=== PATIENT | male | born 1945 | race Caucasian/White ===

== ENCOUNTER 2023-02-18 11:40 | Inpatient (IN) ==
[2023-02-18] MEDS ORDERED: Ondansetron 4 mg VIAL 2 MG/ML 2 ml VIAL IV ONE (12:04)
[2023-02-18] MEDS ORDERED: Albuterol/Ipratropium NEB.SOL (2.5/0.5 MG) 3 ML NEB.SOLN INH ONE (12:05)
[2023-02-18 12:36] LABS: ABS Lymphocytes 0.6 10^3/uL (1.0-4.8); ABS Monocytes 1.3 10^3/uL (0.0-1.1); ABS Neutrophils 10.8 10^3/uL (1.5-7.6); ABS Nucleated RBC 0.01 10^3/ul; Hematocrit 40.1 % (38-53); Hemoglobin 13.1 g/dL (13.2-16.3); Lymphocyte % 4.5 %; Mean Corpuscular Hemoglobin 30.5 pg (27-33); Mean Corpuscular Hgb Conc 32.6 g/dL (31-36); Mean Corpuscular Volume 93.6 fL (80-97); Platelet Count 259 10^3/uL (150-450); Red Blood Count 4.28 10^6/uL (4.06-5.63); Red Cell Distribution Width 14.4 % (12-17); White Blood Count 12.7 10^3/uL (3.6-10.2)
[2023-02-18 12:47] LABS: Activated Partial Thrombo Time 26.4 seconds (26.0-38.0); INR 1.44 (0.83-1.13)
[2023-02-18 12:54] LABS: Albumin/Globulin Ratio 1.2 (1-3); C Reactive Protein 108.24 mg/L (<8.01); Globulin 3.4 g/dL (2-4); Potassium 4.7 mmol/L (3.5-5.0); Total Bilirubin 0.9 mg/dL (0.2-1.0); Total Protein 7.4 g/dL (6.4-8.9); eGFR CKD-EPI 33.3 (>60)
[2023-02-18] MEDS ORDERED: Dexamethasone IV 4 MG/ML VIAL 1 ml VIAL IV SLOW PU ONE (13:29)
[2023-02-18 14:07] LABS: High Sensitivity Troponin 1 Hr 99 pg/mL (<20)
[2023-02-18] MEDS ORDERED: Lactated Ringers 1000 ml BAG 1,000 ML IV ONE (14:51)
[2023-02-18 15:00] LABS: HDL Cholesterol 31.6 mg/dL; Magnesium 1.7 mg/dL (1.9-2.7)
[2023-02-18] MEDS ORDERED: Magnesium Sulfate 2 gm BAG 2 GM/50 ML BAG IVPB ONE (15:15)
[2023-02-18] MEDS ORDERED: Remdesivir 100 mg Vial 200 MG in NS 0.9% 250 ml 210 ML IV ONE (16:50)
[2023-02-18] MEDS ORDERED: Dextrose 50% Syringe 50 ml 25 GM/50 ML SYRINGE IV PUSH PRN (16:51)
[2023-02-18] MEDS ORDERED: cefTRIAXone 1 gm/50 mL D5W 1 GM/50 ML BAG IV SCH (17:00)
[2023-02-18] MEDS ORDERED: Olodaterol Inhaler MDI INH PRN (17:09)
[2023-02-18] MEDS ORDERED: cefTRIAXone 1 GM Q24H (ADVAN) IVPB SCH (18:30)
[2023-02-18] MEDS ORDERED: Ondansetron 4 mg VIAL 2 MG/ML 2 ml VIAL IV PRN (19:09)
[2023-02-19 00:27] LABS: INR 1.52 (0.83-1.13)
[2023-02-19] MEDS: Insulin GLARGINE 100 un/ml 10 ml VIAL SUBCUT SCH ×3 (00:36→22:33)
[2023-02-19 01:23] LABS: Urine Appearance Clear; Urine Bilirubin Negative (Negative); Urine Blood 2+ (Negative); Urine Color Straw; Urine Glucose 3+(>=500 mg/dL) (Negative); Urine Ketones Negative (Negative); Urine Nitrite Negative (Negative); Urine Protein 1+(30 mg/dL) (Negative); Urine Specific Gravity 1.018 (1.002-1.030); Urine Urobilinogen Negative (Negative)
[2023-02-19 01:46] LABS: Urine Bacteria 1+ (Absent); Urine Red Blood Cell 1+(3-5/hpf) (Absent); Urine White Blood Cell 1+(6-10/hpf) (Absent)
[2023-02-19 03:22] LABS: ABS Lymphocytes 0.4 10^3/uL (1.0-4.8); ABS Monocytes 0.3 10^3/uL (0.0-1.1); ABS Nucleated RBC 0.01 10^3/ul; Hematocrit 34.6 % (38-53); Hemoglobin 11.3 g/dL (13.2-16.3); Lymphocyte % 7.8 %; Mean Corpuscular Hemoglobin 30.6 pg (27-33); Mean Corpuscular Hgb Conc 32.8 g/dL (31-36); Mean Corpuscular Volume 93.4 fL (80-97); Mean Platelet Volume 9.1 fL (7.5-11.2); Nucleated Red Blood Cells % 0.1 %/100WBC (0.0-0.8); Platelet Count 202 10^3/uL (150-450); Red Blood Count 3.71 10^6/uL (4.06-5.63); Red Cell Distribution Width 14.2 % (12-17); White Blood Count 4.7 10^3/uL (3.6-10.2)
[2023-02-19 03:50] LABS: Albumin 3.2 g/dL (3.2-5.2); Albumin/Globulin Ratio 1.2 (1-3); Creatinine, Serum 2.08 mg/dL (0.67-1.17); Globulin 2.7 g/dL (2-4); Magnesium 2.2 mg/dL (1.9-2.7); Potassium 5.2 mmol/L (3.5-5.0); Total Bilirubin 0.5 mg/dL (0.2-1.0); Total Protein 5.9 g/dL (6.4-8.9); eGFR CKD-EPI 31.8 (>60)
[2023-02-19] MEDS ORDERED: Lactated Ringers 1000 ml BAG 1,000 ML IV SCH (06:00)
[2023-02-19 06:42] LABS: INR 1.5 (0.83-1.13)
[2023-02-19] MEDS: Dexamethasone IV 4 MG/ML VIAL 1 ml VIAL IV SLOW PU SCH (08:16)
[2023-02-19] MEDS ORDERED: Sodium Polystyrene ORAL.SUSP 15 GM/60 ML BTL PO ONE (12:49)
[2023-02-19] MEDS ORDERED: SODIUM ZIRCONIUM CYCLOSILICATE 10 GM PACKET PO ONE (12:58)
[2023-02-19] MEDS: cefTRIAXone 1 gm/50 mL D5W 1 GM/50 ML BAG IV SCH (18:01)
[2023-02-19] MEDS ORDERED: Remdesivir 100 mg Vial 100 MG in NS 0.9% 250 ml 230 ML IV SCH (21:00)
[2023-02-20 06:21] LABS: Albumin 3.3 g/dL (3.2-5.2); Calcium 8.5 mg/dL (8.6-10.3); Creatinine, Serum 1.83 mg/dL (0.67-1.17); Globulin 3.2 g/dL (2-4); Potassium 4.7 mmol/L (3.5-5.0); Total Bilirubin 0.3 mg/dL (0.2-1.0); Total Protein 6.5 g/dL (6.4-8.9); eGFR CKD-EPI 37.1 (>60)
[2023-02-20 06:22] LABS: INR 1.57 (0.83-1.13)
[2023-02-20 07:15] LABS: ABS Lymphocytes 0.7 10^3/uL (1.0-4.8); ABS Monocytes 0.5 10^3/uL (0.0-1.1); ABS Neutrophils 7.9 10^3/uL (1.5-7.6); ABS Nucleated RBC 0.01 10^3/ul; Hematocrit 34.6 % (38-53); Hemoglobin 11.4 g/dL (13.2-16.3); Lymphocyte % 7.5 %; Mean Corpuscular Hemoglobin 30.5 pg (27-33); Mean Corpuscular Volume 92.7 fL (80-97); Mean Platelet Volume 9.1 fL (7.5-11.2); Nucleated Red Blood Cells % 0.1 %/100WBC (0.0-0.8); Platelet Count 214 10^3/uL (150-450); Red Blood Count 3.73 10^6/uL (4.06-5.63); Red Cell Distribution Width 13.9 % (12-17); White Blood Count 9.1 10^3/uL (3.6-10.2)
[2023-02-20] MEDS: Dexamethasone IV 4 MG/ML VIAL 1 ml VIAL IV SLOW PU SCH (08:19)
[2023-02-20] MEDS: Insulin GLARGINE 100 un/ml 10 ml VIAL SUBCUT SCH (08:33)
[2023-02-20 14:43] VITALS: BP 130/87
[2023-02-20] MEDS: cefTRIAXone 1 gm/50 mL D5W 1 GM/50 ML BAG IV SCH ×2 (16:23→17:52)
== END 2023-02-20 18:50 | disposition home or self-care (01) | DRG 871 ==
LOC: ED 11:40 → SUATTDRO 14:20 → EDHOLD 14:20 → MED 18:03 → MEDTELE 23:15
PROVIDERS: ADMIT Internal Medicine; ATTEND Hospitalist